=== PATIENT | female | born 1995 | race African-American/Black ===

== ENCOUNTER 2017-11-24 20:49 | Emergency (ER) | payer OTHER, BC ==
[~2017-11-24] VITALS: Ht 172.7 cm; Wt 102.1 kg
[~2017-11-24 20:49] MED LIST: CLEOCIN HCL300 MG PO; LO LOESTRIN FE1 EACH PO; NOHOMEMEDICATIONS; NORCO 5-325 TA1 EACH PO; TRAMADOL 50 MG50 MG PO; ZOFRAN ODT4 MG PO
[2017-11-24 22:18] VITALS: BP 140/68
== END 2017-11-24 22:19 | disposition home or self-care (01) ==
LOC: ER 20:49
DX: S02.2XXA Fracture of nasal bones, initial encounter for closed fracture (principal); S01.21XA Laceration without foreign body of nose, initial encounter; Z88.1 Allergy status to other antibiotic agents; W22.8XXA Striking against or struck by other objects, initial encounter; Y93.89 Activity, other specified; Y92.89 Other specified places as the place of occurrence of the external cause; Y99.8 Other external cause status